=== PATIENT | female | born 1955 | race Caucasian/White ===

== ENCOUNTER 2017-01-14 10:16 | Emergency (ER) | payer BC ==
[2017-01-14 10:22] VITALS: BP 143/80; PULSE 64; RESP 18; TEMP 98.4
[2017-01-14] MEDS ORDERED: HYDROcodone/APAP 5-325MG 1 EACH TAB PO STA (10:35)
--- NOTE | 2017-01-14 10:42 | ED ---
General Adult HPI - General Chief complaint: Extremity Injury, Upper Stated complaint: Fall Time Seen by Provider: 01/14/17 10:23 Source: patient, family, RN notes reviewed Mode of arrival: wheelchair Limitations: no limitations - History of Present Illness Initial comments: 61-year-old female presenting after fall at home last evening. Patient states she was walking outside to get some firewood and tripped on the ice and fell forward onto her knees and left wrist. She states she has some bruising to her knees bilaterally but was able to get up and ambulate after this. However she states she is having significant pain and swelling in her left wrist since the fall. She denies any other injury. She denies any head or neck injury. She denies blood thinner use. - Related Data Home Medications Medication Instructions Recorded Confirmed Acyclovir 400 mg PO BID 01/14/17 01/14/17 Magnesium 200 mg PO DAILY 01/14/17 01/14/17 Metoprolol Succinate (ER) [Toprol 12.5 mg PO HS 01/14/17 01/14/17 Xl] [place]-3 Fatty Acids/Fish Oil [Fish 1 cap PO DAILY 01/14/17 01/14/17 Oil 1,000 mg Softgel] Omeprazole [PriLOSEC] 20 mg PO DAILY 01/14/17 01/14/17 Simvastatin [Zocor] 40 mg PO HS 01/14/17 01/14/17 Previous Rx's Medication Instructions Recorded HYDROcodone/APAP 5-325MG [[place] 1 tab PO Q6HR PRN #12 tab 01/14/17 5-325] Ibuprofen [Motrin] 600 mg PO Q6HR PRN #24 tab 01/14/17 Allergies Allergy/AdvReac Type Severity Reaction Status Date / Time Iodinated Contrast Media - AdvReac STRANGE Verified 01/14/17 11:07 Oral and TASTE IN MOUTH Review of Systems ROS Statement: Those systems with pertinent positive or pertinent negative responses have been documented in the HPI. ROS Other: All systems not noted in ROS Statement are negative. Past Medical History Past Medical History: Hyperlipidemia, Hypertension History of Any Multi-Drug Resistant Organisms: None Reported Past Surgical History: Hysterectomy, Orthopedic Surgery Additional Past Surgical History / Comment(s): oral, hand Past Psychological History: Anxiety Smoking Status: Never smoker Past Alcohol Use History: Occasional Past Drug Use History: None Reported General Exam - General Exam Comments Initial Comments: General: Awake and Alert. No acute distress. Does not appear acutely ill. Eyes: TAMEKA, EOM intact. No nystagmus. No scleral icterus. HENT: Atraumatic, normocephalic. Mucous membranes moist. Trachea midline. Neck: The neck is supple, there is no tenderness or JVD. Cardiovascular: Regular rate and rhythm. No murmur, rub, or gallop is appreciated. Distal pulses intact. Respiratory: Lungs are clear to auscultation bilaterally. No wheezes, rales, rhonchi. No respiratory distress. Gastrointestinal: Soft, Nontender. No rebound or guarding. Non-distended. No masses or organomegaly noted. No CVA tenderness. Musculoskeletal: Bilateral knees with minimal abrasion and ecchymosis. Full range of motion without significant pain. She is able to weight-bear without issue. Left wrist with swelling over the dorsal and radial aspect with significant tenderness. Decreased range of motion. She states pain over the palmar aspect of the left hand as well. There is no swelling at this area. Distal cap refill is brisk. Radial pulses intact. Neurological: A&Ox3. CN II-XII grossly intact, There are no obvious motor or sensory deficits. Coordination appears grossly intact. Speech is normal. Skin: Skin is warm and dry and no rashes or lesions are noted. Psychiatric: Cooperative, appropriate mood & affect, normal judgment. Limitations: no limitations Course Vital Signs 01/14/17 10:16 Temperature 98.4 F Pulse Rate 64 Respiratory 18 Rate Blood Pressure 143/80 O2 Sat by Pulse 100 Oximetry Procedures - Orthopedic Splinting/Casting Injury #1 Side: left Upper Extremity Injury Location: wrist Upper Extremity Immobilizer: volar splint Medical Decision Making - Medical Decision Making 61-year-old female presenting after mechanical fall. Patient sustained injury to her left wrist. There is swelling and decreased range of motion in this wrist. X-ray imaging was performed without evidence of acute fracture. Pain medications in the ED with improvement of her pain. Discussed management with ice and elevation, pain medications and NSAIDs. Discussed possibility of occult fracture need for repeat imaging in 5-7 days if she is not feeling improved. OCL splint placed on left wrist for support and for possible occult fracture. There is no anatomical snuffbox tenderness on exam, low suspicion for scaphoid fracture. Discussed close follow-up with PCP. Discussed concerning signs symptoms for immediate return to the ED. Patient and are agreeable with plan and discharge home. - Radiology Data Radiology results: report reviewed, image reviewed Disposition Clinical Impression: Left wrist sprain, Abrasion of knee, bilateral, Fall Disposition: HOME SELF-CARE Condition: Stable Instructions: Wrist Injury (ED) Prescriptions: HYDROcodone/APAP 5-325MG [[place] 5-325] 1 tab PO Q6HR PRN #12 tab PRN Reason: Pain Ibuprofen [Motrin] 600 mg PO Q6HR PRN #24 tab PRN Reason: Pain Referrals: Aye Roper MD [Primary Care Provider] - 1-2 days Time of Disposition: 11:35
--- NOTE | 2017-01-14 11:14 | XR ---
EXAMINATION TYPE: XR hand complete LT DATE OF EXAM: 01/14/2017 10:56 AM COMPARISON: NONE HISTORY: Pain TECHNIQUE: Three views are submitted. FINDINGS: There is narrowing of the DIP joints of all digits and first MCP joint. Arthropathy of the first carp al metacarpal joint noted. Pattern of arthritic changes most typical of osteoarthritis. Cystic geode in the middle phalanx second digit. Question central erosion involving the third digit. IMPRESSION: 1. No definite acute fracture or dislocation if symptoms persist, follow-up study in 7 to 10 days wo uld be suggested 2. Extensive changes of osteoarthritis with possible erosive osteoarthritis involving the third digit .
--- NOTE | 2017-01-14 11:15 | XR ---
EXAMINATION TYPE: XR wrist complete LT DATE OF EXAM: 01/14/2017 10:56 AM COMPARISON: NONE HISTORY: Pain TECHNIQUE: Four views submitted. FINDINGS: The osseous structures are intact. Narrowing the first carpal metacarpal joint noted. IMPRESSION: 1. No definite acute fracture or dislocation if symptoms persist, follow-up study in 7 to 10 days wo uld be suggested
== END 2017-01-14 12:27 | disposition home or self-care (01) ==
LOC: EC 10:16
DX: S63.502A Unspecified sprain of left wrist, initial encounter (principal); S80.01XA Contusion of right knee, initial encounter; S80.02XA Contusion of left knee, initial encounter; I10 Essential (primary) hypertension; E78.5 Hyperlipidemia, unspecified; Z79.899 Other long term (current) drug therapy; Z91.041 Radiographic dye allergy status; Z98.890 Other specified postprocedural states; W00.0XXA Fall on same level due to ice and snow, initial encounter; Y92.009 Unspecified place in unspecified non-institutional (private) residence as the place of occurrence of the external cause; Y93.01 Activity, walking, marching and hiking
CPT/HCPCS: 29125; 99283

== ENCOUNTER → 2019-11-01 | Outpatient (CLI) | payer BC ==
--- NOTE | 2019-11-01 14:01 | CT ---
EXAMINATION TYPE: CT abdomen pelvis w con DATE OF EXAM: 11/01/2019 HISTORY: Hematuria CT DLP: 791.7mGycm Automated Exposure Control for Dose Reduction was Utilized. CONTRAST: CT scan of the abdomen and pelvis is performed without oral but with IV Contrast, patient injected wi th 100 mL of Isovue 300. COMPARISON: None. FINDINGS: LUNG BASES: No significant abnormality is appreciated. LIVER/GB: Nonspecific subcentimeter hyperdense focus posterior right hepatic lobe favors transient he patic attenuation difference as appears more irregular versus masslike. Liver background diffusely hy podense consistent with diffuse fatty infiltration. PANCREAS: No significant abnormality is seen. SPLEEN: No significant abnormality is seen. ADRENALS: No significant abnormality is seen. KIDNEYS: There is 4 mm nonobstructing calculus upper pole left kidney coronal image 68. There is symm etric cortical medullary uptake and excretion without hydronephrosis seen bilaterally. Bladder is poo rly distended with additional intraluminal calculus measuring 5 to 6 mm long axis size image 70. Mild wall thickening is seen. Adjacent pelvic phleboliths. BOWEL: Incidental normal-appearing appendix from cecum. There is large diverticulum from the mesenter ic surface third portion of duodenum with air debris level measuring 4.9 x 2.3 cm axial image 26. No suspicious small large bowel dilatation. UTERUS/ADNEXA: Uterus surgically absent markedly atrophic. LYMPH NODES: No greater than 1cm abdominal or pelvic lymph nodes are appreciated. OSSEOUS STRUCTURES: Facet arthropathy in the lower lumbar spine. OTHER: Tiny fat-containing umbilical hernia. Small fat-containing left inguinal hernia. IMPRESSION: There is 4 mm nonobstructing left renal calculus. There is additional 6 mm intraluminal c alculus within the bladder. Mild wall thickening of bladder could reflect product of acute cystitis, correlate clinically.
== END | disposition home or self-care (01) ==
LOC: RADCTMAIN 12:51
PROVIDERS: ATTEND Urology
DX: N20.0 Calculus of kidney (principal); N21.0 Calculus in bladder
CPT/HCPCS: 74177